=== PATIENT | male | born 1950 | race Caucasian/White ===

== ENCOUNTER 2021-12-29 11:42 | Emergency (ER) | payer MEDICARE ==
[2021-12-29 12:01] VITALS: TEMP 97.6
[2021-12-29] MEDS ORDERED: LIDOCAINE 1% INJ 10MG/ML (5 ML VIAL-PF) SQ STA (12:36)
--- NOTE | 2021-12-29 12:38 | ED ---
Wound/Laceration HPI - General Chief Complaint: Wound/Laceration Stated Complaint: lt arm lac Time Seen by Provider: 12/29/21 12:30 Source: patient, RN notes reviewed Mode of arrival: ambulatory Limitations: no limitations - History of Present Illness Initial Comments: Patient is a 71 year old male who presents to the ER after tripping while carrying cement blocks causing a laceration to his left forearm. He reports initially when the injury first happened he had some numbness to the base of his thumb and base of his index finger however this numbness is slowly improving. He denies any range of motion impairment in his hand or wrist. He denies any head trauma when he tripped and fell. Overall he is normally healthy and denies any significant past medical history. He reports that he does not typically take any medications on a regular. Basis and chooses not to take vaccinations as well consequently his tetanus is not up-to-date. - Related Data Home Medications Medication Instructions Recorded Confirmed No Known Home Medications 12/29/21 12/29/21 Allergies Allergy/AdvReac Type Severity Reaction Status Date / Time No Known Allergies Allergy Verified 12/29/21 13:53 Review of Systems ROS Statement: Those systems with pertinent positive or pertinent negative responses have been documented in the HPI. ROS Other: All systems not noted in ROS Statement are negative. Past Medical History Past Medical History: No Reported History History of Any Multi-Drug Resistant Organisms: None Reported Past Surgical History: No Surgical Hx Reported Past Psychological History: No Psychological Hx Reported Smoking Status: Never smoker Past Alcohol Use History: Occasional Past Drug Use History: None Reported General Exam Limitations: no limitations General appearance: alert, in no apparent distress Head exam: Present: atraumatic, normocephalic, normal inspection Eye exam: Present: normal appearance, PERRL, EOMI. Absent: scleral icterus, conjunctival injection, periorbital swelling ENT exam: Present: normal exam, mucous membranes moist Neck exam: Present: normal inspection Respiratory exam: Absent: respiratory distress, accessory muscle use Left Forearm Wrist exam: Present: full ROM, laceration (Dorsal aspect approximately 5.5 cm in length no tendon or nerve involvement visualized.). Absent: swelling, deformity, crepitus, dislocation, tenderness over anatomical snuff box, pain with axial thumb loading Back exam: Present: normal inspection Neurological exam: Present: alert, oriented X3, CN II-XII intact Psychiatric exam: Present: normal affect, normal mood Skin exam: Present: other (Laceration as above) Course Vital Signs 12/29/21 12/29/21 11:58 14:51 Temperature 97.6 F Pulse Rate 91 85 Respiratory 20 18 Rate Blood Pressure 191/106 150/92 O2 Sat by Pulse 99 98 Oximetry Procedures - Laceration Laceration #1 Consent Obtained: verbal consent Indication: laceration Site: upper extremity Size (cm): 5 Description: linear Depth: simple, single layer Anesthetic Used: lidocaine 1% Anesthesia Technique: local infiltration Pre-repair: wound explored, irrigated extensively Type of Sutures: nylon Size of Sutures: 4-0 Number of Sutures: 8 Technique: simple, interrupted Patient Tolerated Procedure: well, no complications Medical Decision Making - Medical Decision Making Due to trauma with fall and heavy object will check x-ray of the left forearm to evaluate for fractures and foreign bodies. He declines tetanus vaccination or any antibiotic therapy. Xray negative for fracture or foreign body. With improving numbness without any nerve involvement will close laceration securely with sutures. Advised localized wound care and suture removal in 7-10 days. Advised if numbness or tingling or range of motion impairment in the hand or wrist to follow-up with hand specialist. Case discussed with Dr. Alarcon - Radiology Data Radiology results: report reviewed, image reviewed X-ray forearm left impression no acute fracture or dislocation. Disposition Clinical Impression: Laceration Disposition: HOME SELF-CARE Condition: Stable Instructions (If sedation given, give patient instructions): Care For Your Stitches (ED), Laceration (ED) Additional Instructions: Please keep wound clean and dry. If any signs or symptoms of infection please return to the emergency room as no antibiotics have been prescribed primary request. Please remove sutures in 7-10 days. If numbness and tingling in the hand persists please follow-up with Dr. Argueta the hand surgeon at [facility]. Utilize Tylenol or ibuprofen as needed for pain. Please return to the Emergency Department if symptoms worsen or any other concerns. Is patient prescribed a controlled substance at d/c from ED?: No Referrals: None,Stated [Primary Care Provider] - 1-2 days Time of Disposition: 14:43
--- NOTE | 2021-12-29 13:17 | XR ---
EXAMINATION TYPE: XR forearm LT DATE OF EXAM: 12/29/2021 CLINICAL HISTORY: pain TECHNIQUE: Frontal and lateral images of the left forearm are obtained. COMPARISON: None. FINDINGS: There is no acute fracture/dislocation evident. The joint spaces appear within normal limi ts. The overlying soft tissue appears unremarkable. IMPRESSION: There is no acute fracture or dislocation. ICD 10 NO FRACTURE, INITIAL EVALUATION
[2021-12-29 14:52] VITALS: BP 150/92; PULSE 85; RESP 18
== END 2021-12-29 14:53 | disposition home or self-care (01) ==
LOC: EC 11:42
DX: S51.812A Laceration without foreign body of left forearm, initial encounter (principal); W01.0XXA Fall on same level from slipping, tripping and stumbling without subsequent striking against object, initial encounter; Y93.89 Activity, other specified
CPT/HCPCS: 73090; 99283; 12002; J2001